=== PATIENT | female | born 1965 | race Caucasian/White ===

== ENCOUNTER → 2019-04-29 | Outpatient (CLI) | payer OTHER ==
[~2019-04-29] VITALS: Ht 166.4 cm; Wt 102.1 kg
[~2019-04-29] MED LIST: BENADRYL25 MG PO; FISH OIL CONC1000 MG PO; MIDOL; MVI; NUVIGIL50 MG PO; PRILOSEC 20MG20 MG PO; PROZAC 20MG20 MG PO; VITAMIN B12 PO; WELLBUTRIN XL150 MG PO
[2019-04-29 08:20] VITALS: BP 120/84; PULSE 88
== END ==
LOC: LIGHT 04-15 11:51
DX: G47.33 Obstructive sleep apnea (adult) (pediatric) (principal); E78.5 Hyperlipidemia, unspecified; R73.01 Impaired fasting glucose; E66.9 Obesity, unspecified; Z68.36 Body mass index [BMI] 36.0-36.9, adult; Z71.3 Dietary counseling and surveillance
CPT/HCPCS: G0463

== ENCOUNTER → 2019-05-13 | Outpatient (CLI) | payer OTHER | LOC: LIGHT 15:57 | DX: G47.33 Obstructive sleep apnea (adult) (pediatric) (principal); E78.5 Hyperlipidemia, unspecified; R73.01 Impaired fasting glucose; E66.9 Obesity, unspecified; Z68.36 Body mass index [BMI] 36.0-36.9, adult; Z71.3 Dietary counseling and surveillance ==

== ENCOUNTER → 2019-06-01 | Outpatient (CLI) | payer OTHER | LOC: LIGHT 10:39 | DX: G47.33 Obstructive sleep apnea (adult) (pediatric) (principal); E78.5 Hyperlipidemia, unspecified; R73.01 Impaired fasting glucose; E66.9 Obesity, unspecified; Z68.36 Body mass index [BMI] 36.0-36.9, adult; Z71.3 Dietary counseling and surveillance ==

== ENCOUNTER → 2019-06-11 | Outpatient (CLI) | payer OTHER ==
[~2019-06-11] VITALS: Ht 166.4 cm; Wt 101.8 kg
[~2019-06-11] MED LIST changes: +FASTIN30 MG PO; +XENICAL120 MG PO
[2019-06-11 16:30] VITALS: BP 124/72; PULSE 80
== END ==
LOC: LIGHT 14:20
DX: G47.33 Obstructive sleep apnea (adult) (pediatric) (principal); E78.5 Hyperlipidemia, unspecified; R73.01 Impaired fasting glucose; E66.9 Obesity, unspecified; Z68.36 Body mass index [BMI] 36.0-36.9, adult; Z71.3 Dietary counseling and surveillance
CPT/HCPCS: G0463

== ENCOUNTER → 2019-07-23 | Outpatient (CLI) | payer OTHER ==
[~2019-07-23] VITALS: Ht 166.4 cm; Wt 98.4 kg
[2019-07-23 15:31] VITALS: BP 130/70; PULSE 88
== END ==
LOC: LIGHT 15:11
DX: G47.33 Obstructive sleep apnea (adult) (pediatric) (principal); E78.5 Hyperlipidemia, unspecified; R73.01 Impaired fasting glucose; E66.9 Obesity, unspecified; Z68.35 Body mass index [BMI] 35.0-35.9, adult; Z71.3 Dietary counseling and surveillance
CPT/HCPCS: G0463

== ENCOUNTER → 2020-02-29 | Outpatient (CLI) | payer BC, OTHER ==
[~2020-02-29] VITALS: Ht 166.4 cm; Wt 99.3 kg
[2020-02-29 15:33] VITALS: BP 134/64; PULSE 90
== END ==
LOC: LIGHT 11-23 14:59
DX: E66.8 Other obesity (principal); Z68.35 Body mass index [BMI] 35.0-35.9, adult; E78.5 Hyperlipidemia, unspecified
CPT/HCPCS: G0463

== ENCOUNTER 2020-03-04 15:28 | Inpatient (IN) | payer BC, OTHER ==
[~2020-03-04] VITALS: Ht 166.4 cm; Wt 95.9 kg
[2020-07-06] VITALS (11 sets, daily range): BP systolic 111–129; BP diastolic 51–83; PULSE 74–101; TEMP 97.7–98.9
--- NOTE | 2020-07-06 09:40 | NUR ---
The patient ambulated back to [facility] independently using a steady gait and appeared to tolerate the activity well. Vital signs obtained. Consent signed. 18G IV started in left forerarm with one stick, LR infusing without difficulty. Heart Reg. Lungs clear. Bowel sounds audible. Call light is witin reach. The patient does not have a visitor with her at this time. The patient denies any further needs at this time. The patient's lights were turned down and her door closed. Will continue to monitor the patient.
[2020-07-06] MEDS ORDERED: OCUVITE1 TA1 PO (09:43)
[2020-07-06] MEDS ORDERED: FLINTSTONES W/I1 CTB PO (09:43)
--- NOTE | 2020-07-06 10:46 | NUR ---
The patient was taken back via cart to the operating room at this time. The patient's chart was sent with her to surgery. The patient's belongings will be taken over to the recovery room and will be transferred with the patient to the 3rd floor post operatively.
--- NOTE | 2020-07-06 13:36 | NUR ---
PATIENT TO ROOM 343 PER BED WITH REPORT FROM KAREN BLANKENSHIP @ [id number]. PT IS DROWSEY BUT AROUSES TO VERBAL. VSS, SCDS BILATERALLY. 4 LAP SITES CDI WITH BANDAIDS OVER INCISION. DRAIN TO 5TH SITE WITH MINIMAL RED DRAINAGE. PT DENIES NEEDS AT THIS TIME.
--- NOTE | 2020-07-06 15:33 | NUR ---
PT SIPPING ON BLUE GATORADE. DENIES NEEDS. REDDISH DRAINAGE IN REGLA DRAIN.
--- NOTE | 2020-07-06 22:01 | NUR ---
Patient resting in bed. Patient states pain is tolerable. 4 lap sites are clean and dry with bandaids on them.
[2020-07-07 00:16] VITALS: BP 95/52; PULSE 95; TEMP 98.4
[2020-07-07 04:46] VITALS: BP 103/51; PULSE 99; TEMP 98.2
[2020-07-07 08:14] VITALS: BP 107/61; PULSE 86; TEMP 98
--- NOTE | 2020-07-07 09:54 | NUR ---
Initial visit attempt; Patient resting, Typesetters Printer left card informing her of the availability of spiritual care and information regarding the availability of spiritual care at [facility].
--- NOTE | 2020-07-07 10:08 | NUR ---
Streetsweeper Operator met with patient to discuss discharge planning. Patient lives in [place] with her nine year old, Chery who is being cared for by patient's friend, Tana (ph#[phone]). Patient sees Dr. Ha for primary care and obtains medications from [facility] with no difficulties. 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 Patient does not use any DME and reports independence with ADLS. Patient does not have Advance Directives at this time. Patient states she is still legally to her , Danny but that this will be changing soon. SW offered to assist with completing DPOA-HC but patient did not want to at this time as things are going to be changing with her situation. Patient was interested in taking home the DPOA-HC form which SW provided. Patient plans to return home at discharge with Tana providing transportation. SW will continue to follow as needed.
--- NOTE | 2020-07-07 13:20 | NUR ---
REGLA drain removal per protocol suture cut and pulled, drain pulled covered with 4X4 then with sterile tagaderm. Pt tolerated procedure well.
[2020-07-07 13:28] VITALS: BP 130/65; PULSE 97; TEMP 98.7
--- NOTE | 2020-07-07 14:57 | NUR ---
PT RESTING IN BED DENIES N/V.
[2020-07-07 15:43] VITALS: BP 108/49; PULSE 89; TEMP 98.4
[2020-07-07] MEDS ORDERED: ZOFRAN 4MG T4 MG/TAB PO (17:31)
[2020-07-07] MEDS ORDERED: NORCO 325 MG-51 TAB PO (17:31)
--- NOTE | 2020-07-07 18:37 | NUR ---
DISCHARGE INSTRUCTIONS REVIEWED WITH PT. QUESTIONS SOLICITED AND ANSWERED. PT TAKEN TO ED EXIT PER WHEEL CHAIR.
== END 2020-07-07 18:00 | disposition home or self-care (01) | DRG 621 ==
LOC: SDCO 04-15 09:00 → EDSTATUS 06-10 09:00 → SDCO 06-10 09:00 → SURG 07-05 09:00 → INPTSU 07-06 09:04 → SURG 07-06 11:00
PROVIDERS: ADMIT Surgery
PROC: 0DB64Z3 Excision of Stomach, Percutaneous Endoscopic Approach, Vertical (ICD-10-PCS; principal; 2020-07-06 11:00)
DX: E66.01 Morbid (severe) obesity due to excess calories (principal); Z68.35 Body mass index [BMI] 35.0-35.9, adult; F41.9 Anxiety disorder, unspecified; F32.9 Major depressive disorder, single episode, unspecified; E78.5 Hyperlipidemia, unspecified; M19.90 Unspecified osteoarthritis, unspecified site; G47.30 Sleep apnea, unspecified
CPT/HCPCS: J0690; J1100; J1885; J2405; J2550; J2704; J3010; J7042; J7120

== ENCOUNTER → 2020-03-18 | Outpatient (CLI) | payer BC, OTHER | LOC: BHSO 09:00 ==

== ENCOUNTER 2021-01-20 06:59 | Day surgery (SDC) | payer BC, OTHER ==
[~2021-01-20] VITALS: Ht 168.9 cm; Wt 65.9 kg
[~2021-01-20 06:59] MED LIST changes: +BARIATRIC VITAMINS PO; +FLINTSTONES W/I1 CTB PO; +NORCO 325 MG-51 TAB PO; +OCUVITE1 TA1 PO; +ZOFRAN 4MG T4 MG/TAB PO
[2021-01-20 07:46] VITALS: BP 107/69; PULSE 87; TEMP 98.1
[2021-01-20 08:55] VITALS: BP 89/71; PULSE 85
--- NOTE | 2021-01-20 08:55 | NUR ---
Pt to GI bay 2 via cart from ENDO. Pt awake and alert. Ambulates to recliner with stand by assistance. Friend in room. Tea and muffin given per pt request. Will continue to monitor. Call light within reach.
[2021-01-20 09:10] VITALS: BP 94/67; PULSE 73
--- NOTE | 2021-01-20 09:10 | NUR ---
Pt tolerating food and fluids without difficulties. Call light within reach.
[2021-01-20 09:24] VITALS: BP 113/59; PULSE 80
--- NOTE | 2021-01-20 09:24 | NUR ---
Discharge instructions reviewed. Pt voices understanding. IV site discontinued with all parts intact. Pt up to dress. Call light within reach.
--- NOTE | 2021-01-20 09:30 | NUR ---
Pt escorted to private car via wheel chair. Pt accompanied home by her friend [place]
== END 2021-01-20 09:30 | disposition home or self-care (01) ==
LOC: SDCO 06:59
DX: Z12.11 Encounter for screening for malignant neoplasm of colon (principal); F32.9 Major depressive disorder, single episode, unspecified; Z80.0 Family history of malignant neoplasm of digestive organs; Z79.899 Other long term (current) drug therapy; Z20.822 Contact with and (suspected) exposure to COVID-19
CPT/HCPCS: J2704; J7030

== ENCOUNTER → 2024-02-12 | Outpatient (CLI) | payer BC | LOC: MC.RAD 07:00 | DX: Z12.31 Encounter for screening mammogram for malignant neoplasm of breast (principal) ==